=== PATIENT | female | born 1990 | race Caucasian/White ===

== ENCOUNTER 2023-03-22 18:56 | Emergency (ER) | payer OTHER, MEDICAID, BC ==
[~2023-03-22 18:56] MED LIST: Iopamidol-370 76% 500 ML MDV (1 ML CHARGE) ONE
[2023-03-22] MEDS ORDERED: Morphine 4 MG/ML VIAL ONE (19:15)
[2023-03-22 19:16] LABS: #Eosinphils 0.1 thou/uL (0.0-0.7); #Monocytes 0.8 thou/uL (0.11-0.59); #Neutrophils 6.5 thou/uL (1.40-6.50); %Basophils 0.5 % (0.0-1.0); %Eosinophils 0.6 % (0.0-10.0); %Lymphocytes 16.3 % (21.0-51.0); %Monocytes 8.7 % (0.0-10.0); %Neutrophils 73.4 % (42.0-75.0); Hematocrit 36.8 % (36.0-47.0); Hemoglobin 12.6 g/dL (12.0-16.0); Mean Corpuscular HGB CONC 34.2 g/dL (32.0-36.0); Mean Corpuscular Hemoglobin 31.3 pg (27.0-31.0); Mean Corpuscular Volume 91.3 fl (78.0-98.0); Platelet Count 407 10x3/uL (130-400); RBC Distribution Width 12.5 % (11.5-14.5); Red Blood Cell (RBC) Count 4.03 mill/uL (4.20-5.40); White Blood Cell (WBC) Count 8.8 10x3/uL (4.8-10.8)
[2023-03-22] MEDS ORDERED: Boostrix 0.5 ML (Tdap) VIAL (>/=7 yrs of age) ONE (19:16)
[2023-03-22 19:26] LABS: BHCG - Serum Negative (NEGATIVE); Pregs Control Background? CLEAR/WHITE (CLR/WHITE); Pregs Control Bar Appear? YES (CONTROL BAR)
[2023-03-22 19:37] LABS: Prothrombin Time 13.4 sec (12.0-14.7)
[2023-03-22 19:50] LABS: ALT (SGPT) 16 U/L (8-55); AST (SGOT) 17 U/L (5-34); Albumin 4.5 g/dL (3.5-5.0); Alkaline Phosphatase 35 U/L (40-110); Anion Gap 15 mmol/L (10-20); BUN (Urea Nitrogen) 7 mg/dL (7.0-18.7); Bilirubin, Total 0.6 mg/dL (0.2-1.2); Calc. Creatinine Clearance 0 mL/min (70-130); Calcium 9.2 mg/dL (7.8-10.44); Carbon Dioxide 22 mmol/L (22-29); Chloride 106 mmol/L (98-107); Estimated GFR 114; Globulin 3.1 g/dL (2.4-3.5); Glucose 98 mg/dL (70-105); Lipase 12 U/L (8-78); Potassium 3.5 mmol/L (3.5-5.1); Protein, Total 7.6 g/dL (6.0-8.3); Sodium 139 mmol/L (136-145)
[2023-03-22] MEDS ORDERED: Ketorolac Tromethamine 30 MG/ML VIAL ONE (20:16)
[2023-03-22 21:07] LABS: Amphetamine Not Detected (NotDetected); Barbiturates Screen Not Detected (NotDetected); Benzodiazepine Screen Not Detected (NotDetected); Cocaine Metabolite Screen Not Detected (NotDetected); Methadone Not Detected (NotDetected); Methamphetamine Not Detected (NotDetected); Opiate Screen Not Detected (NotDetected); Oxycodone Screen Not Detected (NotDetected); Phencyclidine (PCP) Not Detected (NotDetected); THC/Cannabinoid Screen Detected (NotDetected); Tricyclic Screen Detected (NotDetected)
[2023-03-22 21:17] LABS: Bilirubin Negative (Negative); Blood, Urine 3+ (Negative); CAUTI Indications for Culture Pelvic or flank pain; Clarity Clear (Clear); Glucose, Urine (Dipstick) Normal (Negative); Ketone, Urine 10 mg/dL (Negative); Leukocyte Negative Leu/uL (Negative); Nitrite Negative (Negative); Protein, Urine (Dipstick) 10 mg/dL (Neg-Trace); Squamous Epithelial 21-50 HPF (0-3); Urobilinogen Normal mg/dL (Less than 2); WBC/HPF 21-50 HPF (0-3); pH, Urine 5.5 (5.0-9.0)
[2023-03-22 21:34] LABS: Bacteria/HPF 1+ HPF (None Seen); Specific Gravity, Urine Greater than 1.060 (1.002-1.036)
[2023-03-22 21:36] LABS: Urine Culture Reflex Yes Yes
== END 2023-03-22 21:35 | disposition home or self-care (01) ==
LOC: ERS 18:56
DX: S06.0X0A Concussion without loss of consciousness, initial encounter (principal); M54.2 Cervicalgia; Z23 Encounter for immunization; V89.2XXA Person injured in unspecified motor-vehicle accident, traffic, initial encounter
CPT/HCPCS: 36415; 70450; 71260; 72125; 74177; 80053; 80306; 81001; 83690; 84703; 85025; 85610; 85730; 86850; 86870; 86880; 86900; 86901; 87086; 90471; 90715; 93005; 96361; 96374; J1885; J2270; Q9967